=== PATIENT | female | born 1980 | race American Indian/Alaskan Native ===

== ENCOUNTER 2018-03-31 21:32 | Emergency (ER) | payer SELFPAY ==
[2018-03-31 22:07] VITALS: BP 146/101
[2018-04-01] MEDS ORDERED: SOLU-Medrol IM ONE (00:42)
[2018-04-01 01:27] LABS: Bilirubin,Urine NEG (Negative); Blood,Urine SM (Negative); Color,Urine Amber (Yellow); Mucus,Urine 2+ /HPF
[2018-04-01 01:30] LABS: HCG Qualitative,Urine Negative (Negative)
--- NOTE | 2018-04-01 01:42 | Emergency Department Report ---
HPI - General Chief Complaint: Headache Time Seen by Provider: 04/01/18 00:34 - HPI HPI: Patient complaining of one-week history of rash in the face, cough nonproductive , headache, not feeling well, the rash also involves her trunk and arms. Patient denies any fever or chills or night sweats. Patient states symptoms started since he moving to a new apartment. ED Past Medical Hx - Past Medical History Previous Medical History?: No - Surgical History Past Surgical History?: No - Social History Smoking Status: Never Smoker Substance Use Type: None - Medications Home Medications: Home Medications Medication Instructions Recorded Confirmed Last Taken Type Triamcinolone 0.5% [Kenalog 0.5% 1 applic TP TID #1 tube 04/01/18 Unknown Rx CREAM] ED Review of Systems ROS: Stated complaint: N/V HEADACHE Other details as noted in HPI Comment: All other systems reviewed and negative Gastrointestinal: denies: nausea, vomiting Genitourinary: denies: urgency, dysuria Skin: rash Physical Exam - Physical Exam Vital Signs: Vital Signs 03/31/18 22:00 Temperature 98 F Pulse Rate 116 H Respiratory 20 Rate Blood Pressure 146/101 O2 Sat by Pulse 100 Oximetry Physical Exam: - Physical Exam Physical Exam: - General Limitations: No Limitations General appearance: alert, in no apparent distress.- Head Head exam: Present: atraumatic, normocephalic - Eye Eye exam: Present: normal appearance - ENT ENT exam: Present: mucous membranes moist - Neck Neck exam: Present: normal inspection - Respiratory Respiratory exam: Present: normal lung sounds bilaterally. Absent: respiratory distress - Cardiovascular Cardiovascular Exam: Present: normal rhythm. Absent: systolic murmur, diastolic murmur, rubs, gallop - GI/Abdominal GI/Abdominal exam: Present: soft, normal bowel sounds - Extremities Exam Extremities exam: Present: normal inspection - Back Exam Back exam: Present: normal inspection - Neurological Exam Neurological exam: Present: alert, oriented X3 - Psychiatric Psychiatric exam: normal affect and mood - Skin Skin exam: Present: Rash, head and extremities ED Course Vital Signs 03/31/18 22:00 Temperature 98 F Pulse Rate 116 H Respiratory 20 Rate Blood Pressure 146/101 O2 Sat by Pulse 100 Oximetry ED Medical Decision Making - Medical Decision Making Patient refuses x-ray as she had complaining of cough also. Wanted test which was done and was negative. Advised to follow up with PCP or return to ED if symptoms worsens - Differential Diagnosis dermatitis, impetigo Critical care attestation.: If time is entered above; I have spent that time in minutes in the direct care of this critically ill patient, excluding procedure time. ED Disposition Clinical Impression: Atopic dermatitis Qualifiers: Atopic dermatitis type: other Qualified Code(s): L20.89 - Other atopic dermatitis Disposition: - TO HOME OR SELFCARE Is pt being admited?: No Does the pt Need Aspirin: No Condition: Stable Instructions: Contact Dermatitis (ED) Prescriptions: Triamcinolone 0.5% [Kenalog 0.5% CREAM] 1 applic TP TID #1 tube Referrals: PRIMARY CARE, [Primary Care Provider] - 3-5 Days
== END 2018-04-01 01:50 | disposition home or self-care (01) ==
LOC: ED 21:32
DX: L20.9 Atopic dermatitis, unspecified (principal); R05 Cough; R51 Headache; Z91.013 Allergy to seafood
CPT/HCPCS: 81001; 81025; 99283; J2920